=== PATIENT | female | born 1985 | race Caucasian/White ===

== ENCOUNTER 2017-06-11 09:39 | Inpatient (IN) ==
[2017-06-11] MEDS: LR 1,000 ML IV PRN ×2 (09:40→10:45)
[2017-06-11] MEDS ORDERED: MAG-AL + SIM ORAL LIQUID 30ml PO PRN ×2 (09:46→13:17)
[2017-06-11] MEDS ORDERED: CALCIUM CARBONATE Chewable 500mg TABLET PO PRN ×2 (09:46→13:17)
[2017-06-11] MEDS ORDERED: METHYLERGONOVINE 0.2 MG/ML INJECTION IM PRN (09:46)
[2017-06-11] MEDS ORDERED: CARBOPROST 250 MCG/ML INJECTION IM PRN (09:46)
[2017-06-11] MEDS ORDERED: ACETAMINOPHEN 500 MG TABLET PO PRN (09:46)
[2017-06-11] MEDS ORDERED: LIDOCAINE 1% (10mg/ml) 2mL INJ PF SDV ID PRN (09:46)
[2017-06-11] MEDS ORDERED: NALOXONE 0.4 MG/ML INJECTION IVP PRN (10:29)
[2017-06-11] MEDS ORDERED: ROPIVACAINE 1% 10MG/ML INJ 200 MG, SUFentanil 50 MCG in NS 100 ML EPI PRN (10:29)
[2017-06-11] MEDS ORDERED: DiphenhydrAMINE 50 MG/ML INJECTION IVP PRN (10:29)
[2017-06-11] MEDS ORDERED: ONDANSETRON 4 MG/2 ML INJECTION IVP PRN (10:29)
--- NOTE | 2017-06-11 10:29 | Anesthesia Preoperative Report ---
Anesthesia Epidural/Spinal Rec - Date and Time Date: 06/11/17 Preoperative Diagnosis: Procedure: Labor Epidural Plan: Epidural - Vital Signs /Para: P:2 - Medictaions & Allergies Inpatient Medications: Current Medications Acetaminophen (Tylenol) 500 - 1,000 mg PO Q4H PRN PRN Reason: Pain Al Hydroxide/Mg Hydroxide (Maalox Plus) 30 ml PO Q3H PRN PRN Reason: Indigestion Calcium Carbonate (Tums) 500 - 1,000 mg PO Q2H PRN PRN Reason: Indigestion Carboprost Tromethamine (Hemabate) 250 mcg IM O PRN PRN Reason: .Downtime Lactated Ringer's (Lactated Ringers) 1,000 mls @ 999 mls/hr IV .Q1H1M PRN Lidocaine HCl (Xylocaine-Mpf 1% Vial) 0.2 mg ID O PRN PRN Reason: IV Start Methylergonovine Maleate (Methergine) 0.2 mg IM O PRN Misoprostol (Cytotec) 800 mcg WI ONCE PRN Allergies/Adverse Reactions: Allergies Allergy/AdvReac Type Severity Reaction Status Date / Time No Known Allergies Allergy Unverified 09/18/14 13:35 - Home Medications Home Medications: Home Medications Medication Instructions Recorded Confirmed Type Docosahexanoic Acid [ Dha] 1 cap PO DAILY #0 cap 09/18/14 History - Surgical History Reproductive Surgery/Treatment: DENIES: Section Anesthesia Reactions: None Hx Family Anesthesia Reaction: No History of Motion Sickness: No - Social History Smoking Status: Never smoker Second Hand Exposure: No Substance Use Type: does not use Alcohol Intake Frequency: does not drink Hx Chewing Tobacco Use: No - Pertinent Findings Lab Data: CBC and BMP 06/11/17 09:54 - Physical Exam Respiratory Exam: lungs clear Cardiovascular Exam: regular rate and rhythm, no murmur - Airway Assessment Mallampati Score: I TMD: 3 Fingerbreadths Neck Extension: good Overall Assessment: no airway concerns - ASA ASA Score: 2 - Discussion Discussion: Discussed risks/options/alternatives of anesthesia and questions answered. Patient consents. Nursing pain assessment noted. Anesthesia Discussion: family member Attestation Statement: Prior to the delivery of any anesthetic medication, I examined the patient, developed the plan, obtained the patient's consent and discussed the risk and benefits of the procedure with the patient/guardian.
[2017-06-11] MEDS: OXYTOCIN DRIP 30 UNIT/500 ML ML IV SCH ×2 (13:00→23:02)
[2017-06-11] MEDS ORDERED: DiphenhydrAMINE 25 MG CAPSULE PO PRN (13:17)
[2017-06-11] MEDS ORDERED: HYDROCORTISONE 2.5% CREAM 30gm RECTALLY PRN (13:17)
[2017-06-11] MEDS ORDERED: BENZOCAINE 20% SPRAY 0.5 ML MM ONE (13:17)
[2017-06-11] MEDS ORDERED: HYDROCODONE/APAP 5mg/325mg TABLET PO PRN (13:17)
--- NOTE | 2017-06-11 19:06 | Labor and Delivery Note ---
DATE OF DELIVERY: 06/11/2017 DIAGNOSES 1. 32-year-old female, G4, P2, at 38.3 weeks gestational age. 2. Spontaneous labor. 3. Gestational diabetes. 4. Epidural anesthesia. 5. Pitocin augmentation to 2 mU/min. 6. Artificial rupture of membranes. 7. OP rotating to OA. 8. Vertex asynclitic. 9. Spontaneous vaginal delivery. 10. Male infant, 9/9 Apgars, 3410 g (Curry). DESCRIPTION This is a patient of mine who came in in spontaneous labor. Initially she was 7 cm dilated. She was admitted and an epidural block was placed. She then had a Vang placed and I did artificial rupture of membranes. She was 8.5 cm. About an hour later she was completely dilated in OP presentation. We began pushing and she pushed for roughly 50 minutes. was OP and rotated to OA with pushing. It was also asynclitic but once it straightened around then she delivered vaginally. Contractions were very spaced apart during pushing so I started Pitocin at 2 mU/min to get the frequency increased. Infant was bulb suctioned after delivery of the head and then again after delivery of the body. Cord was doubly clamped and cut after draining for two minutes and the ' s father cut the cord. Infant was initially placed on the mother's abdomen. Placenta was delivered spontaneously and held. Perineum was intact. Maternal blood type is O+, rubella is immune and GBS is negative. EBL was 250 mL. MTDD
[2017-06-11] MEDS: IBUPROFEN 800 MG TABLET PO PRN (19:20)
[2017-06-11] MEDS: ACETAMINOPHEN 500 MG TABLET PO PRN (22:47)
[2017-06-11 23:04] VITALS: RESP 16
[2017-06-12 03:42] VITALS: BP 113/60; PULSE 57; TEMP 97.6; O2SAT 99
[2017-06-12] MEDS: IBUPROFEN 800 MG TABLET PO PRN ×2 (04:19→12:18)
[2017-06-12] MEDS ORDERED: DOCUSATE CALCIUM 240 MG CAPSULE PO SCH (09:00)
--- NOTE | 2017-06-12 10:11 | Progress Note ---
OB PP Progress Note Free Text - Date Date: 06/12/17 - Progress Note Progress Note: vss af desires dc today q&a f/u 5-6 wks no rx needed.-krb
[2017-06-12] MEDS: ACETAMINOPHEN 500 MG TABLET PO PRN (10:42)
== END 2017-06-12 15:55 | disposition home or self-care (01) | DRG 775 ==
LOC: OBOBS 09:39 → MC 09:41
PROVIDERS: ADMIT Obstetrics & Gynecology; ATTEND Obstetrics & Gynecology